=== PATIENT | female | born 1985 | race Two or more races ===

== ENCOUNTER 2020-09-29 07:42 | Inpatient (IN) | payer MEDICAID, OTHER ==
[~2020-09-29] VITALS: Ht 162.6 cm; Wt 45.4 kg
[2020-09-29] MEDS ORDERED: SODIUM CHLORIDE 0.9% 1,000 ML IVB ONE (08:00)
[2020-09-29] MEDS ORDERED: InsuLIN R (HUMAN) 100 UNITS in SODIUM CHL 0.9% 99 ML IV SCH (08:00)
[2020-09-29] MEDS ORDERED: INSULIN LANTUS (GLARGINE) 1 /0.01ml (100units/ml) SC ONE (08:00)
[2020-09-29] MEDS ORDERED: DEXTROSE (50%) 50ML SYRG IV PRN ×3 (08:00→22:30)
[2020-09-29 08:13] LABS: Basophils # (auto) 0.1 10 ^3/uL (0-0.2); Basophils % (auto) 0.4 % (0.0-2.0); Eosinophils # (auto) 0 10 ^3/uL (0-0.8); Hematocrit 47.4 % (36.0-46.0); Hemoglobin 15.1 g/dL (12.2-16.2); Lymphocytes # (auto) 1.7 10 ^3/uL (0.4-5.4); Lymphocytes % (auto) 8.4 % (10.0-50.0); Mean Corpuscular Hgb Conc. 31.9 g/dL (32.0-36.0); Mean Corpuscular Volume 94.1 fL (80.0-100.0); Monocytes # (auto) 0.5 10 ^3/uL (0-1.3); Monocytes % (auto) 2.5 % (0.0-12.0); Neutrophils # (auto) 17.4 10 ^3/uL (1.6-8.6); Neutrophils % (auto) 88.7 % (37.0-80.0); Red Blood Cells 5.04 10^6/uL (4.0-5.20); Red Cell Distribution Width 12.7 % (11.8-14.3); White Blood Cell 19.6 10^3/uL (4.4-10.8)
[2020-09-29] MEDS ORDERED: SODIUM BICARBONATE 8.4 % INJ 50ML VIAL IV ONE (09:00)
[2020-09-29 09:17] LABS: Chloride 107 mmol/L (98-107); Potassium 4.3 mmol/L (3.5-5.1); Sodium 136 mmol/L (136-145)
[2020-09-29] MEDS: ONDANSETRON HCL 4 MG/2 ML VIAL IV ONE ×2 (09:22→10:55)
[2020-09-29 09:25] LABS: Alanine Aminotransferase 24 U/L (13-56); Albumin 3.7 g/dL (3.4-5.0); Alkaline Phosphatase 99 U/L (45-117); Anion Gap 23 (5-15); Aspartate Aminotransferase 19 U/L (15-37); BUN/Creatinine Ratio 25.3; Bilirubin, Total 0.6 mg/dL (0.2-1.0); Blood Alcohol < 3.0 mg/dL (0-5); Blood Urea Nitrogen 19 mg/dL (7-18); Calcium 8.6 mg/dL (8.5-10.1); GFR African American 112 mL/min; GFR Non-African American 92 mL/min; Total Protein 7.4 g/dL (6.4-8.2)
[2020-09-29] MEDS: ACCU-CHEK COMFORT CURVE STRIP VI SCH ×8 (09:26→22:45)
[2020-09-29 09:30] LABS: Carbon Dioxide 6 mmol/L (21-32); Glucose 457 mg/dL (74-106)
[2020-09-29 10:33] LABS: Urine Bacteria FEW /hpf (None Seen); Urine Blood TRACE /uL (Negative); Urine Mucus FEW (None Seen); Urine Specific Gravity 1.024 (1.001-1.035); Urine WBC 6 /hpf (0 - 5)
[2020-09-29 10:40] LABS: Alcohol, Urine < 3.0 mg/dL (0-10); Amphetamine Screen, Urine NEGATIVE (NEGATIVE); Barbiturate Scree,Urine NEGATIVE (NEGATIVE); Benzodiazephine Screen, Urine NEGATIVE (NEGATIVE); Cannabinoid Screen, Urine POSITIVE (NEGATIVE); Cocaine Screen, Urine NEGATIVE (NEGATIVE); Opiate Scree,Urine NEGATIVE (NEGATIVE); Phencyclidine Screen, Urine NEGATIVE (NEGATIVE)
[2020-09-29] MEDS ORDERED: SOD CHL IV ONE (12:00)
[2020-09-29] MEDS ORDERED: KCL IV ONE (12:00)
[2020-09-29] MEDS ORDERED: SODIUM BICARB IV ONE (12:00)
[2020-09-29] MEDS ORDERED: SODIUM BICARB 50ML SYR 100 ML in SOD CHL 0.45% 1,000 ML IV ONE (12:15)
[2020-09-29] MEDS ORDERED: ONDANSETRON HCL 4 MG/2 ML VIAL IV PRN (13:15)
[2020-09-29] MEDS ORDERED: HYDROcodone-ACET 5/325MG TAB PO PRN (13:15)
[2020-09-29] MEDS ORDERED: NITROGLYCERIN 0.4 MG SL TAB SL PRN (13:15)
[2020-09-29] MEDS ORDERED: MORPHINE SULFATE INJECTION 2 MG/ML SYRG IV PRN (13:15)
[2020-09-29] MEDS ORDERED: ACETAMINOPHEN 325 MG TAB PO PRN ×2 (13:15)
[2020-09-29 14:22] LABS: Calcium 8.1 mg/dL (8.5-10.1); Potassium 3.6 mmol/L (3.5-5.1)
[2020-09-29 18:06] LABS: BUN/Creatinine Ratio 17.4; Calcium 8.1 mg/dL (8.5-10.1); Potassium 3.6 mmol/L (3.5-5.1)
[2020-09-29] MEDS ORDERED: ACCU-CHEK COMFORT CURVE STRIP VI SCH (22:00)
[2020-09-29] MEDS ORDERED: InsuLIN REG 1unit/0.01ml Soln (100units/ml) SC SCH (22:00)
[2020-09-29 22:12] LABS: BUN/Creatinine Ratio 17.6; Calcium 8.3 mg/dL (8.5-10.1); Potassium 3.5 mmol/L (3.5-5.1)
[2020-09-29] MEDS: InsuLIN R (HUMAN) 100 UNITS in SODIUM CHL 0.9% 99 ML IV SCH (22:46)
[2020-09-30] MEDS: ACCU-CHEK COMFORT CURVE STRIP VI SCH ×7 (00:01→20:00)
[2020-09-30] MEDS: InsuLIN R (HUMAN) 100 UNITS in SODIUM CHL 0.9% 99 ML IV SCH (00:02)
[2020-09-30 01:32] LABS: Calcium 8.3 mg/dL (8.5-10.1); Potassium 3.1 mmol/L (3.5-5.1)
[2020-09-30] MEDS ORDERED: SODIUM BICARBONATE 8.4 % INJ 50ML VIAL IV ONE (02:00)
[2020-09-30] MEDS ORDERED: DEXTROSE (50%) 50ML SYRG IV PRN (03:45)
[2020-09-30] MEDS ORDERED: INSULIN LANTUS (GLARGINE) 1 /0.01ml (100units/ml) SC ONE (03:45)
[2020-09-30] MEDS ORDERED: POTASSIUM CHLORIDE 40 MEQ, LIDOCAINE 1% (LOCAL ANESTH.) 4 ML in SODIUM CHL 0.9% 250 ML IV ONE (03:45)
[2020-09-30] MEDS: InsuLIN REG 1unit/0.01ml Soln (100units/ml) SC SCH ×5 (04:00→20:00)
[2020-09-30 05:00] VITALS: BP 140/89
[2020-09-30] MEDS: SODIUM CHLORIDE 0.9% 1,000 ML IV SCH ×2 (05:06→11:45)
[2020-09-30] MEDS ORDERED: INSLANTI SC ×2 (05:24→18:58)
[2020-09-30] MEDS ORDERED: INSLISPI SC ×2 (05:24→18:58)
[2020-09-30 05:28] VITALS: BP 140/89
[2020-09-30 07:20] LABS: Basophils # (auto) 0 10 ^3/uL (0-0.2); Basophils % (auto) 0.2 % (0.0-2.0); Eosinophils # (auto) 0 10 ^3/uL (0-0.8); Hematocrit 40.9 % (36.0-46.0); Hemoglobin 14.1 g/dL (12.2-16.2); Lymphocytes # (auto) 1.2 10 ^3/uL (0.4-5.4); Lymphocytes % (auto) 6.9 % (10.0-50.0); Mean Corpuscular Hemoglobin 30.5 pg (28.0-32.0); Mean Corpuscular Hgb Conc. 34.5 g/dL (32.0-36.0); Mean Corpuscular Volume 88.6 fL (80.0-100.0); Monocytes # (auto) 0.7 10 ^3/uL (0-1.3); Monocytes % (auto) 4.1 % (0.0-12.0); Neutrophils # (auto) 15.3 10 ^3/uL (1.6-8.6); Neutrophils % (auto) 88.8 % (37.0-80.0); Red Blood Cells 4.62 10^6/uL (4.0-5.20); Red Cell Distribution Width 12.1 % (11.8-14.3); White Blood Cell 17.3 10^3/uL (4.4-10.8)
[2020-09-30 07:56] LABS: BUN/Creatinine Ratio 15.5; Potassium 3.1 mmol/L (3.5-5.1)
[2020-09-30 09:00] VITALS: BP 136/88
[2020-09-30] MEDS ORDERED: INSULIN LANTUS (GLARGINE) 1 /0.01ml (100units/ml) SC SCH (10:00)
[2020-09-30 13:00] VITALS: BP 140/93
[2020-09-30 16:45] VITALS: BP 141/76
== END 2020-09-30 21:45 | disposition home or self-care (01) | DRG 420 ==
LOC: ER 07:42 → EDBD 07:42 → TELE 13:15 → TELE-EAST 09-30 04:29
PROVIDERS: ADMIT Internal Medicine; ATTEND Internal Medicine
DX: E10.10 Type 1 diabetes mellitus with ketoacidosis without coma (principal); F12.90 Cannabis use, unspecified, uncomplicated; Z20.822 Contact with and (suspected) exposure to COVID-19; Z79.4 Long term (current) use of insulin; Z83.3 Family history of diabetes mellitus; Z79.899 Other long term (current) drug therapy
CPT/HCPCS: 36415; 36600; 70450; 71045; 80048; 80053; 80307; 80320; 81001; 81025; 82010; 82805; 82962; 83605; 85025; 87040; 87426; 93005; 96365; 96366; 96367; 96372; 96376; 99291; G0378; J1815; J2001; J2405

== ENCOUNTER 2020-12-16 16:05 | Inpatient (IN) | payer MEDICAID ==
[~2020-12-16] VITALS: Ht 157.5 cm; Wt 53.0 kg
[~2020-12-16 16:05] MED LIST: INSLANTI SC; INSLISPI SC
[2020-12-16 16:39] LABS: Basophils # (auto) 0 10 ^3/uL (0-0.2); Basophils % (auto) 0.1 % (0.0-2.0); Eosinophils # (auto) 0 10 ^3/uL (0-0.8); Hematocrit 45.4 % (36.0-46.0); Hemoglobin 14.6 g/dL (12.2-16.2); Lymphocytes # (auto) 0.5 10 ^3/uL (0.4-5.4); Mean Corpuscular Hemoglobin 29.1 pg (28.0-32.0); Mean Corpuscular Hgb Conc. 32.2 g/dL (32.0-36.0); Mean Corpuscular Volume 90.6 fL (80.0-100.0); Monocytes # (auto) 0.6 10 ^3/uL (0-1.3); Monocytes % (auto) 2.7 % (0.0-12.0); Neutrophils # (auto) 22.1 10 ^3/uL (1.6-8.6); Neutrophils % (auto) 95.2 % (37.0-80.0); Red Blood Cells 5.01 10^6/uL (4.0-5.20); Red Cell Distribution Width 13.2 % (11.8-14.3); White Blood Cell 23.2 10^3/uL (4.4-10.8)
[2020-12-16 16:54] LABS: Magnesium 2.4 mg/dL (1.6-2.6); Potassium 4.4 mmol/L (3.5-5.1)
[2020-12-16 16:57] LABS: BUN/Creatinine Ratio 19.6; Bilirubin, Total 0.9 mg/dL (0.2-1.0); Total Protein 7.7 g/dL (6.4-8.2)
[2020-12-16] MEDS ORDERED: InsuLIN R (HUMAN) 100 UNITS in SODIUM CHL 0.9% 99 ML IV SCH (18:45)
[2020-12-16] MEDS ORDERED: DEXTROSE (50%) 50ML SYRG IV PRN (18:45)
[2020-12-16] MEDS ORDERED: INSULIN LANTUS (GLARGINE) 1 /0.01ml (100units/ml) SC ONE (18:45)
[2020-12-16] MEDS: ACCU-CHEK COMFORT CURVE STRIP VI SCH ×3 (19:51→22:42)
[2020-12-16] MEDS: SODIUM CHLORIDE 0.9% 1,000 ML IV SCH (20:00)
[2020-12-16 21:18] LABS: Urine Bacteria NONE SEEN /hpf (None Seen); Urine Blood 1+ /uL (Negative); Urine Mucus FEW (None Seen); Urine Specific Gravity 1.024 (1.001-1.035); Urine WBC 61 /hpf (0 - 5)
[2020-12-16] MEDS ORDERED: ACETAMINOPHEN 325 MG TAB PO ONE (22:15)
[2020-12-16] MEDS: D5W/SOD CHL 0.45%/KCL 20MEQ 1,000 ML IV SCH (22:40)
[2020-12-16] MEDS ORDERED: SODIUM CHLORIDE 0.9% 1,000 ML IV SCH (22:45)
[2020-12-16 23:01] LABS: BUN/Creatinine Ratio 19.4; Calcium 8.2 mg/dL (8.5-10.1); Magnesium 2.4 mg/dL (1.6-2.6); Phosphorus 3.8 mg/dL (2.5-4.90); Potassium 4.6 mmol/L (3.5-5.1)
[2020-12-16] MEDS ORDERED: MAGNESIUM SULFATE 1GM/100ML 200 ML IV ONE (23:45)
[2020-12-16] MEDS ORDERED: POTASSIUM CHL 20MEQ/100ML 100 ML IV PRN (23:45)
[2020-12-16] MEDS ORDERED: NITROGLYCERIN 0.4 MG SL TAB SL PRN (23:45)
[2020-12-16] MEDS ORDERED: MORPHINE SULFATE INJECTION 2 MG/ML SYRG IV PRN (23:45)
[2020-12-17] MEDS ORDERED: cefTRIAXone 1GM/50ML D5W 50 ML IV ONE (00:15)
[2020-12-17] MEDS: SODIUM CHLORIDE 0.9% 1,000 ML IV SCH ×4 (01:45→14:05)
[2020-12-17] MEDS: ACCU-CHEK COMFORT CURVE STRIP VI SCH ×12 (01:46→23:52)
[2020-12-17 02:38] LABS: BUN/Creatinine Ratio 15.7; Calcium 7.7 mg/dL (8.5-10.1); Potassium 4.1 mmol/L (3.5-5.1)
[2020-12-17] MEDS: ONDANSETRON HCL 4 MG/2 ML VIAL IV PRN ×4 (03:01→20:42)
[2020-12-17 07:02] LABS: Basophils # (auto) 0 10 ^3/uL (0-0.2); Basophils % (auto) 0.2 % (0.0-2.0); Eosinophils # (auto) 0.2 10 ^3/uL (0-0.8); Eosinophils % (auto) 0.8 % (0.0-7.0); Hematocrit 38.4 % (36.0-46.0); Hemoglobin 12.8 g/dL (12.2-16.2); Lymphocytes # (auto) 1.1 10 ^3/uL (0.4-5.4); Lymphocytes % (auto) 5.2 % (10.0-50.0); Mean Corpuscular Hemoglobin 29.7 pg (28.0-32.0); Mean Corpuscular Hgb Conc. 33.4 g/dL (32.0-36.0); Mean Corpuscular Volume 88.9 fL (80.0-100.0); Monocytes # (auto) 1.5 10 ^3/uL (0-1.3); Monocytes % (auto) 6.9 % (0.0-12.0); Neutrophils # (auto) 18.5 10 ^3/uL (1.6-8.6); Neutrophils % (auto) 86.9 % (37.0-80.0); Red Blood Cells 4.32 10^6/uL (4.0-5.20); White Blood Cell 21.3 10^3/uL (4.4-10.8)
[2020-12-17 07:23] LABS: Anion Gap 11 (5-15); BUN/Creatinine Ratio 14.5; Blood Urea Nitrogen 10 mg/dL (7-18); Calcium 7.7 mg/dL (8.5-10.1); Carbon Dioxide 13 mmol/L (21-32); Chloride 112 mmol/L (98-107); GFR African American 123 mL/min; GFR Non-African American 102 mL/min; Glucose 235 mg/dL (74-106); Potassium 3.8 mmol/L (3.5-5.1); Sodium 136 mmol/L (136-145)
[2020-12-17] MEDS: D5W/SOD CHL 0.45%/KCL 20MEQ 1,000 ML IV SCH ×3 (07:35→16:18)
[2020-12-17] MEDS ORDERED: INSULIN LANTUS (GLARGINE) 1 /0.01ml (100units/ml) SC SCH (10:00)
[2020-12-17] MEDS: cefTRIAXone 1GM/50ML D5W 50 ML IV SCH (10:25)
[2020-12-17 12:29] LABS: Calcium 7.5 mg/dL (8.5-10.1); Potassium 3.5 mmol/L (3.5-5.1)
[2020-12-17] MEDS ORDERED: INSULIN LANTUS (GLARGINE) 1 /0.01ml (100units/ml) SC ONE (12:30)
[2020-12-17] MEDS ORDERED: DEXTROSE (50%) 50ML SYRG IV PRN (12:30)
[2020-12-17 12:31] LABS: BUN/Creatinine Ratio 10.7
[2020-12-17] MEDS: InsuLIN REG 1unit/0.01ml Soln (100units/ml) SC SCH ×3 (16:00→23:33)
[2020-12-17 17:00] VITALS: BP 127/74
[2020-12-17 22:00] VITALS: BP 120/67
[2020-12-18] MEDS: ONDANSETRON HCL 4 MG/2 ML VIAL IV PRN (03:31)
[2020-12-18] MEDS: InsuLIN REG 1unit/0.01ml Soln (100units/ml) SC SCH ×4 (03:46→16:00)
[2020-12-18] MEDS: ACCU-CHEK COMFORT CURVE STRIP VI SCH ×4 (03:46→16:30)
[2020-12-18 05:00] VITALS: BP 138/94
[2020-12-18] MEDS: D5W/SOD CHL 0.45%/KCL 20MEQ 1,000 ML IV SCH ×3 (06:46→10:45)
[2020-12-18] MEDS: SODIUM CHLORIDE 0.9% 1,000 ML IV SCH ×3 (07:45→16:20)
[2020-12-18] MEDS: cefTRIAXone 1GM/50ML D5W 50 ML IV SCH (09:12)
[2020-12-18 09:22] VITALS: BP 126/79
[2020-12-18] MEDS ORDERED: INSULIN LANTUS (GLARGINE) 1 /0.01ml (100units/ml) SC SCH (10:00)
[2020-12-18 10:05] LABS: Basophils # (auto) 0.1 10 ^3/uL (0-0.2); Basophils % (auto) 0.5 % (0.0-2.0); Eosinophils # (auto) 0 10 ^3/uL (0-0.8); Eosinophils % (auto) 0.1 % (0.0-7.0); Hematocrit 40.2 % (36.0-46.0); Hemoglobin 13.8 g/dL (12.2-16.2); Lymphocytes # (auto) 1.5 10 ^3/uL (0.4-5.4); Lymphocytes % (auto) 12.7 % (10.0-50.0); Mean Corpuscular Hemoglobin 29.7 pg (28.0-32.0); Mean Corpuscular Hgb Conc. 34.4 g/dL (32.0-36.0); Mean Corpuscular Volume 86.3 fL (80.0-100.0); Monocytes # (auto) 0.8 10 ^3/uL (0-1.3); Monocytes % (auto) 6.6 % (0.0-12.0); Neutrophils # (auto) 9.3 10 ^3/uL (1.6-8.6); Neutrophils % (auto) 80.1 % (37.0-80.0); Nucleated Red Blood Cells % 0.1 %; Red Blood Cells 4.66 10^6/uL (4.0-5.20); Red Cell Distribution Width 12.8 % (11.8-14.3); White Blood Cell 11.6 10^3/uL (4.4-10.8)
[2020-12-18 12:40] VITALS: BP 118/65
[2020-12-18] MEDS ORDERED: INSU1INJ19 SC (15:44)
[2020-12-18] MEDS ORDERED: BLOO1KIT60 XX (15:44)
[2020-12-18] MEDS ORDERED: INSLISPI SC (15:44)
[2020-12-18 16:44] VITALS: BP 111/66
== END 2020-12-18 18:45 | disposition home or self-care (01) | DRG 420 ==
LOC: EDBD 16:05 → ER 16:06 → OVERFLOW 23:38 → TELE-WESTW 12-17 13:17
PROVIDERS: ADMIT Hospitalist; ATTEND Hospitalist
DX: E10.10 Type 1 diabetes mellitus with ketoacidosis without coma (principal); N39.0 Urinary tract infection, site not specified; Z83.3 Family history of diabetes mellitus; Z91.14 Patient's other noncompliance with medication regimen
CPT/HCPCS: 36415; 36600; 80048; 80053; 81001; 82010; 82805; 82962; 83036; 83735; 83930; 84100; 85025; 87040; 87086; 87088; 87426; 96365; 96366; 96368; 96372; G0378; J0696; J1815; J2405

== ENCOUNTER 2021-02-03 07:10 | Emergency (ER) | payer MEDICAID ==
[~2021-02-03] VITALS: Ht 162.6 cm; Wt 49.4 kg
[~2021-02-03 07:10] MED LIST changes: +BLOO1KIT60 XX; -INSLANTI SC; +INSU1INJ19 SC
[2021-02-03] MEDS ORDERED: SODIUM CHLORIDE 0.9% 2,000 ML IV ONE (07:30)
[2021-02-03] MEDS ORDERED: PROCHLORPERAZINE EDISYLATE 5 MG/ML 2ML VIAL IV ONE (07:30)
[2021-02-03 07:57] LABS: Urine WBC None Seen /hpf (0 - 5)
[2021-02-03 08:15] LABS: Urine Bacteria FEW /hpf (None Seen); Urine Blood Negative /uL (Negative); Urine Specific Gravity 1.035 (1.001-1.035)
[2021-02-03 08:31] LABS: Cannabinoid Screen, Urine POSITIVE (NEGATIVE)
[2021-02-03 08:40] LABS: Amphetamine Screen, Urine POSITIVE (NEGATIVE); Barbiturate Scree,Urine NEGATIVE (NEGATIVE); Benzodiazephine Screen, Urine NEGATIVE (NEGATIVE); Cocaine Screen, Urine NEGATIVE (NEGATIVE); Opiate Scree,Urine NEGATIVE (NEGATIVE); Phencyclidine Screen, Urine NEGATIVE (NEGATIVE)
[2021-02-03 08:57] LABS: Basophils # (auto) 0 10 ^3/uL (0-0.2); Basophils % (auto) 0.2 % (0.0-2.0); Eosinophils # (auto) 0 10 ^3/uL (0-0.8); Hematocrit 41.8 % (36.0-46.0); Hemoglobin 13.9 g/dL (12.2-16.2); Lymphocytes # (auto) 0.7 10 ^3/uL (0.4-5.4); Mean Corpuscular Hemoglobin 29.3 pg (28.0-32.0); Mean Corpuscular Hgb Conc. 33.3 g/dL (32.0-36.0); Mean Corpuscular Volume 88.2 fL (80.0-100.0); Monocytes # (auto) 0.6 10 ^3/uL (0-1.3); Monocytes % (auto) 3.2 % (0.0-12.0); Neutrophils # (auto) 16.2 10 ^3/uL (1.6-8.6); Neutrophils % (auto) 92.6 % (37.0-80.0); Red Blood Cells 4.74 10^6/uL (4.0-5.20); Red Cell Distribution Width 12.9 % (11.8-14.3); White Blood Cell 17.5 10^3/uL (4.4-10.8)
[2021-02-03 09:45] LABS: Potassium 3.8 mmol/L (3.5-5.1)
[2021-02-03 09:53] LABS: BUN/Creatinine Ratio 28.2; Bilirubin, Total 0.9 mg/dL (0.2-1.0); Calcium 8.1 mg/dL (8.5-10.1); Total Protein 6.8 g/dL (6.4-8.2)
[2021-02-03 09:56] LABS: Magnesium 1.8 mg/dL (1.6-2.6)
[2021-02-03] MEDS ORDERED: cefTRIAXone 1GM/50ML D5W 50 ML IV ONE (10:15)
[2021-02-03] MEDS ORDERED: InsuLIN REG 1unit/0.01ml Soln (100units/ml) IV ONE ×2 (10:15→11:15)
[2021-02-03] MEDS ORDERED: AMMONIA 0.33 ML INHALANT IN ONE (12:32)
[2021-02-03 15:45] VITALS: BP 128/85
== END 2021-02-03 16:04 | disposition home or self-care (01) ==
LOC: EDBD 07:10 → ER 07:10
DX: R11.2 Nausea with vomiting, unspecified (principal); N39.0 Urinary tract infection, site not specified; F15.10 Other stimulant abuse, uncomplicated; E11.65 Type 2 diabetes mellitus with hyperglycemia; Z79.4 Long term (current) use of insulin; Z79.899 Other long term (current) drug therapy
CPT/HCPCS: 36415; 71045; 80053; 80307; 81001; 82962; 83690; 83735; 84443; 84702; 85025; 93005; 96361; 96365; 96375; 99285; J0696; J0780; J1815; J7030

== ENCOUNTER 2023-01-19 05:58 | Emergency (ER) | payer MEDICAID ==
[~2023-01-19] VITALS: Ht 172.7 cm; Wt 50.0 kg
[2023-01-19 06:49] VITALS: BP 145/100; PULSE 105; RESP 22; O2SAT 100
[2023-01-19] MEDS ORDERED: SODIUM CHLORIDE 0.9% 1,000 ML IV ONE ×2 (07:45)
[2023-01-19] MEDS ORDERED: PANTOPRAZOLE 40 MG/10 ML VIAL INJ IV ONE (07:45)
[2023-01-19] MEDS ORDERED: PIPERACILLIN-TAZOB 3.375GM 100 ML IV ONE (07:45)
== END 2023-01-19 08:14 | disposition home or self-care (01) ==
LOC: EDBD 05:58 → ER 05:58 → EDUNIT# 05:58 → ER 08:14
DX: E10.65 Type 1 diabetes mellitus with hyperglycemia (principal); F12.10 Cannabis abuse, uncomplicated; F15.10 Other stimulant abuse, uncomplicated
CPT/HCPCS: 36600; 82805